=== PATIENT | male | born 1950 | race Caucasian/White ===

== ENCOUNTER → 2016-07-12 | Outpatient (CLI) | payer MEDICARE, BC ==
[~2016-07-12] MED LIST: ADVAIR DIS1 PUFF/DO1 IH; AVODART0.5 MG PO; CARDURA4 MG PO; HUMALOG100 UNIT/1 SQ; ISOPTIN DPS120 MG PO; LANTUS100 UNITS/ SQ; LASIX DPS40 MG PO; LIPITOR DPS20 MG PO; LOPRESSOR DPS100 MG PO; NEURONTIN DPS300 MG PO; NORCO 5-325 TA1 EACH PO; PRESERVISION A1 EAC1 PO; PROTONIX40 MG PO; ROCALTROL DP0.25 MCG PO; SENNA S TABLET1 EACH PO; SOD BICARB TAB650 MG PO; SPIRIVA18 MCG IH; VITAMIN D50000 UNIT PO; ZYLOPRIM-DPS100 MG PO; [UNRECOGNIZED DRUG - OTHER] PO
== END | disposition home or self-care (01) ==
LOC: RAD.S 09:50
DX: C34.32 Malignant neoplasm of lower lobe, left bronchus or lung (principal); I10 Essential (primary) hypertension; Z98.890 Other specified postprocedural states; J98.4 Other disorders of lung

== ENCOUNTER → 2016-09-30 | Outpatient (CLI) | payer MEDICARE, BC ==
--- NOTE | 2016-10-09 16:25 | SS ---
ADMIT: 09/30/2016 RM/LOC: [facility] MR#: [id number] [facility] [address], [place] [id number] RHONDA TORRES [address] [facility] [address] [place] [address] Sleep Study SEX: M AGE: 65 : 1950 STUDY DATE: 09/30/2016 CLINICAL HISTORY: This is a 65-year-old male, body mass index 42.7, 72 inches tall, 315 pounds with known history of obstructive sleep apnea in the sleep lab for CPAP titration. TECHNICAL DESCRIPTION: CPAP titration performed on night of 09/30/2016, attended by a trained medical office technologist. TITRATION FINDINGS: TITRATION DESCRIPTION: The patient was titrated from 5 cm of CPAP to 11 cm of CPAP. A large AirFit F20 mask was used as interface. SLEEP: Total time in bed is 520 minutes, total sleep time 449 minutes, sleep efficiency is 86.3%, 74% hours spent in stage II sleep, 14% hours spent in stage REM. BREATHING: Few hypopneas and snoring were noted at lower CPAP pressures between 5 to 9 cm. On CPAP 12 cm, the patient was seen in REM sleep in supine position with excellent resolution of obstructive events and snoring. CPAP 12 cm, appears to be ideal for resolution of obstructive events. OXYGEN SATURATION: Mean sleeping oxygen saturation is 90%. CARDIAC: Average heart rate 68 beats per minute. MOVEMENTS/POSITION: During the study, patient slept in the supine lateral position with no significant leg movements. IMPRESSION AND PLAN: Recommending CPAP 12 cm mask as mentioned above. Recommend losing weight, avoiding sedatives or alcohol. Refrain from driving if excessively sleepy. Recommend avoiding sleeping in supine position. Clinical correlation needed. CPAP compliance followup is recommended. Neo Doe MD/ moe JOB #: [id number] CC: Yohannes Weems MD, Attending Physician Yohannes Weems MD, Family Physician Yohannes Weems MD
== END | disposition home or self-care (01) ==
LOC: RESC 19:50
DX: G47.33 Obstructive sleep apnea (adult) (pediatric) (principal)

== ENCOUNTER → 2016-10-04 | Outpatient (CLI) | payer MEDICARE, BC | END | disposition home or self-care (01) | LOC: RAD.S 08:41 → PTH.S 09:00 | DX: C34.32 Malignant neoplasm of lower lobe, left bronchus or lung (principal); I10 Essential (primary) hypertension; Z98.890 Other specified postprocedural states ==